=== PATIENT | female | born 2000 | race Caucasian/White ===

== ENCOUNTER 2022-05-16 17:44 | Emergency (ER) | payer OTHER, SELFPAY ==
--- NOTE | 2022-05-16 17:45 | EXP.UTC ---
Discharge Plan Disposition Patient Disposition: Home, Self-Care Condition: Good Prescriptions Prescriptions: New triamcinolone acetonide 0.1 % cream 1 applic topical BID PRN (Reason: itching) Qty: 15 0RF methylprednisolone 4 mg Tablets,Dose Pack 4 mg PO DIRECTED Qty: 21 0RF Referrals Follow up/Referrals: Hilario Crocker [Primary Care Provider] - See instructions Activity Restrictions/Add. Instructions Additional Instructions/Restrictions: Drink plenty of fluids. Take the medications as directed. Don't put the topical steroids (triamcinolone) on your face or your groin. Use them sparingly, but if there is an area that is itching more they should help that. Follow up with your regular doctor. GO TO THE ER FOR ANY WORSENING SYMPTOMS Clinical Impressions Clinical Impression: Pityriasis rosea Instructions Patient Instructions: Triamcinolone Topical, Methylprednisolone, DI for Pityriasis Rosea Discharge ED Provider: Bernardino Cortez [facility] General Stated complaint: rash Time Seen by Provider: 05/16/22 17:45 History of Present Illness Provider Complaint: She states that she has had a rash on her back, chest and neck for the past 4 days. Related Data Previous Rx's Medication Instructions Recorded methylprednisolone 4 mg tablets in 4 mg PO DIRECTED #21 tabs 05/16/22 a dose pack triamcinolone acetonide 0.1 % 1 applic topical BID PRN itching 05/16/22 topical cream #15 grams Allergies Allergy/AdvReac Type Severity Reaction Status Date / Time No Known Allergies Allergy Verified 05/16/22 18:11 [facility] Disclaimer: The information contained in this section may have been updated after the patient was seen, as this information can be updated by other users. Medical History No significant past medical history Social History Smoking Status: Unknown if ever smoked alcohol intake: never current occupational status: other Travel in the last 8 weeks: None ROS Obtained: Yes All systems reviewed & no additional complaints except as documented Constitutional Constitutional: Denies chills and Denies fever(s) Eyes Eyes: Denies eye discharge ENT Ears, Nose, Mouth, and Throat: Denies dizziness, Denies otalgia and Denies sore throat Cardiovascular Cardiovascular: Denies chest pain Respiratory Respiratory: Denies shortness of breath, Denies chest congestion, Denies cough, Denies stridor and Denies wheezing Gastrointestinal Gastrointestingal: Denies nausea or vomiting Musculoskeletal Musculoskeletal: Reports system reviewed and no additional complaints, except as documented and Denies arthralgias Integumentary/Breasts Skin/Breast: Reports as per HPI and Reports rash Neurologic Neurologic: Denies dizziness and Denies paresthesias Allergic/Immunologic Allergic/Immunologic: Denies wheezing Physical Exam General General appearance: alert and in no apparent distress Head Head exam: atraumatic, normocephalic and normal inspection Eye Eye exam: Present normal appearance, PERRL and EOMI ENT ENT exam: Present normal exam, normal oropharynx, mucous membranes moist, TM's normal bilaterally and normal external ear exam Neck Neck exam: Present normal inspection, full ROM and trachea midline; Absent meningismus or lymphadenopathy Chest Chest inspection: Present normal inspection and symmetric chest wall rise; Absent tenderness Respiratory Respiratory exam: Present normal lung sounds bilaterally; Absent respiratory distress Cardiovascular Cardiovascular exam: Present regular rate and normal rhythm; Absent JVD Abdominal Exam Abdominal exam: Present soft and normal bowel sounds; Absent distention, tenderness or guarding Extremities Exam Extremities exam: Present normal inspection, full ROM and normal capillary refill; Absent calf tenderness Back Exam Back exam: Present normal inspec
[2022-05-16 18:00] VITALS: BP 136/77; PULSE 63; RESP 21; TEMP 36.8; O2SAT 100; BMI 25.7
[2022-05-16 18:28] VITALS: BP 136/77; PULSE 63; RESP 21; TEMP 36.8; O2SAT 100
== END 2022-05-16 18:57 | disposition home or self-care (01) ==
PROVIDERS: Emergency Provider Nurse Practitioner Family; PCP Family Medicine
DX: L42 Pityriasis rosea (principal)
CPT/HCPCS: 99212; G0463